=== PATIENT | female | born 1945 | race Caucasian/White ===

== ENCOUNTER → 2017-03-08 | Outpatient (CLI) | payer MEDICARE ==
[~2017-03-08] MED LIST: ALPR-475 PO; ASPI-496 PO; ATOR10TA PO; CLON0.1T PO; CLOP75TA52 PO; FLUO20CA19 PO; HYDR-882 PO; VERA180C2 PO
== END | disposition home or self-care (01) ==
LOC: CVU 13:27
PROVIDERS: ATTEND Internal Medicine Cardiovascular Disease
DX: I65.23 Occlusion and stenosis of bilateral carotid arteries (principal); Z95.5 Presence of coronary angioplasty implant and graft
CPT/HCPCS: 93880

== ENCOUNTER → 2018-02-27 | Outpatient (CLI) | payer MEDICARE | END | disposition home or self-care (01) | LOC: CVU 13:33 | PROVIDERS: ATTEND Nurse Practitioner Family | DX: I65.22 Occlusion and stenosis of left carotid artery (principal); I10 Essential (primary) hypertension; I25.2 Old myocardial infarction | CPT/HCPCS: 93880 ==

== ENCOUNTER 2020-02-01 14:35 | Outpatient (CLI) | payer MEDICARE ==
[~2020-02-01 14:35] MED LIST changes: -ALPR-475 PO; +ALPR0.5T7 PO; -CLON0.1T PO; +CLON0.1T22 PO; +HYDR-3653 PO; -HYDR-882 PO
== END 2020-02-01 23:59 | disposition home or self-care (01) ==
LOC: CVU 14:35
PROVIDERS: ATTEND Internal Medicine Cardiovascular Disease
DX: I70.201 Unspecified atherosclerosis of native arteries of extremities, right leg (principal); I70.202 Unspecified atherosclerosis of native arteries of extremities, left leg; J44.9 Chronic obstructive pulmonary disease, unspecified; E78.5 Hyperlipidemia, unspecified; I10 Essential (primary) hypertension
CPT/HCPCS: 93922; 93925